=== PATIENT | female | born 1970 | race Caucasian/White ===

== ENCOUNTER 2022-07-07 00:36 | Day surgery (SDC) | payer OTHER, SELFPAY ==
[2022-06-29 11:43] VITALS: BMI 29.2
[2022-07-07 07:31] VITALS: BP 139/88; PULSE 73; RESP 20; TEMP 36.3; O2SAT 100; BMI 27.8
[2022-07-07] MEDS: LACTATED RINGERS 1,000 ML 150 ML IV CONT (07:52)
--- NOTE | 2022-07-07 08:41 | PM.HPGS ---
History of Present Illness History of Present Illness Consent: Risks, benefits, and alternatives have been discussed and questions answered. Patient agrees to proceed with procedure. Chief complaint: anemia, biopsy to determine cause Narrative: Radha Salamanca is a 51 year old female with chronic constipation on laxatives and gerd- not longer using omeprazole. Never had scopes. Also found to have anemia, no overt gib Review of Systems Constitutional: Constitutional: Denies headache(s) and Denies weakness Eyes: Eyes: Denies blurry vision ENT: Reports Normal hearing present, Denies headache(s) and Denies neck pain Cardiovascular: Cardiovascular: Denies chest pain and Denies dyspnea Respiratory: Respiratory: Denies dyspnea Gastrointestinal: Gastrointestinal: Reports no additional gastrointestinal complaints Genitourinary: Genitourinary: Denies dysuria Musculoskeletal: Musculoskeletal: Denies neck pain Integumentary/Breasts: Skin/Breast: Denies dry skin Neurologic: Reports Normal hearing present, Denies headache(s) and Denies weakness Psychiatric: Psychiatric: Denies anxiety Endocrine: Endocrine: Denies change in body appearance Hematologic/Lymphatic: Hematologic/Lymphatic: Denies easy bleeding Allergic/Immunologic: Allergic/Immunologic: Denies urticaria PMF Past Medical History Medical History (Updated 07/07/22 @ 08:42 by Aram Aranda MD) Anemia Constipation GERD (gastroesophageal reflux disease) Social History Social History Smoking status: Former smoker Substance use: former Substance use type: marijuana and amphetamines Meds Home Medications and Allergies Home Medications Medication Instructions Recorded Confirmed Type bisacodyl 5 mg tablet 5 mg PO DAILY PRN Constipation 06/29/22 06/29/22 History ferrous gluconate 324 mg (36 mg 324 mg PO DAILY 06/29/22 06/29/22 History iron) tablet folic acid 1 mg tablet 1 mg PO DAILY 06/29/22 06/29/22 History lactulose 10 gram/15 mL oral 15 ml PO BID 06/29/22 06/29/22 History solution naproxen 250 mg tablet 250 mg PO BID PRN Pain 06/29/22 06/29/22 History Allergies Allergy/AdvReac Type Severity Reaction Status Date / Time No Known Allergies Allergy Verified 07/07/22 07:28 Vital Signs Vital Signs - 24 hr 07/07/22 07:31 Temperature 97.4 F L Pulse Rate 73 Respiratory Rate 20 Blood Pressure 139/88 Pulse Oximetry 100 Oxygen Delivery Room Air Exam Const: General: comfortable and no acute distress HENMT: Face/Nose/Sinus: Normal nares present Eyes: General: appearance normal, both eyes and all related structures Neck: Neck: no JVD Resp: Auscultation: clear to auscultation bilaterally Cardio: Rate: regular rate Rhythm: regular rhythm GI: Inspection: non-distended GI Palp: Yes Soft to palpation Skin: General skin exam: normal color Neuro: General: gait normal Speech: normal speech Extrem: General: normal to inspection Psych: Mental Status: mental status grossly normal Assessment and Plan Assessment and plan (1) Constipation: Code(s): K59.00 - Constipation, unspecified Status: Acute Assessment and Plan: colonoscopy (2) GERD (gastroesophageal reflux disease): Code(s): K21.9 - Gastro-esophageal reflux disease without esophagitis Status: Acute Assessment and Plan: egd with bx (3) Anemia: Code(s): D64.9 - Anemia, unspecified Status: Acute
--- NOTE | 2022-07-07 08:48 | P.PNAN_ITS ---
Anes - Initial Pre Proc Eval Procedure: Operation Date: 07/07/22 09:00 Proposed Procedures p Esophagogastroduodenoscopy & Colonoscopy - Aram Aranda MD Date/Time: 07/07/22 08:48 Surgeon: Aram Aranda MD Pre Op Diagnosis: anemia, biopsy to determine cause Patient Data Age: 51 Gender: F Height: 1.63 m Weight: 73.7 kg Last Vital Signs Temp 97.4 F L 07/07/22 07:31 Pulse 73 07/07/22 07:31 Resp 20 07/07/22 07:31 BP 139/88 07/07/22 07:31 Pulse Ox 100 07/07/22 07:31 O2 Del Method Room Air 07/07/22 07:31 Allergies Allergy/AdvReac Type Severity Reaction Status Date / Time No Known Allergies Allergy Verified 07/07/22 07:28 Home Medications Medication Instructions Recorded Confirmed Type bisacodyl 5 mg tablet 5 mg PO DAILY PRN Constipation 06/29/22 06/29/22 History ferrous gluconate 324 mg (36 mg 324 mg PO DAILY 06/29/22 06/29/22 History iron) tablet folic acid 1 mg tablet 1 mg PO DAILY 06/29/22 06/29/22 History lactulose 10 gram/15 mL oral 15 ml PO BID 06/29/22 06/29/22 History solution naproxen 250 mg tablet 250 mg PO BID PRN Pain 06/29/22 06/29/22 History Patient hx anesthesia problems: none Family hx anesthesia problems: none Results Review: All pre-operative results and documents have been reviewed as part of the pre- operative evaluation. [facility], [facility] Past Medical History Medical History (Updated 07/07/22 @ 08:42 by Aram Aranda MD) Anemia Constipation GERD (gastroesophageal reflux disease) Social History Social History Smoking status: Former smoker Substance use: former Substance use type: marijuana and amphetamines Anes - Eval Final PreProcedure Day of Procedure 07/07/22 08:48 Patient weight: normal Heart: regular rate and rhythm Lungs: clear to auscultation Airway: Mallampati scale class II Neurological: alert and oriented Last oral intake: >/= 8 hours ASA classification: II Emergent: no Anesthetic plan: proceed Anesthesia type and monitoring: general GIVS and standard monitoring Results Review: All pre-operative results and documents have been reviewed as part of the pre- operative evaluation. Informed Consent: The patient's anesthetic plan and its attendant risks and benefits were discussed with the patient/family/POA. Questions were solicited and answers provided to the satisfaction of the patient/family/POA.
--- NOTE | 2022-07-07 09:05 | SUR.OPER ---
EGD START 846, END 850 COLONOSCOPY START 854, END 904
[2022-07-07 09:09] VITALS: BP 108/67; PULSE 80; RESP 21; O2SAT 99
[2022-07-07 09:19] VITALS: BP 102/69; PULSE 83; RESP 26; O2SAT 98
[2022-07-07 09:29] VITALS: BP 106/74; PULSE 74; RESP 14; O2SAT 100
== END 2022-07-07 09:41 | disposition home or self-care (01) ==
PROVIDERS: Visit Provider Internal Medicine Gastroenterology
PROC: 0DJ08ZZ Inspection of Upper Intestinal Tract, Via Natural or Artificial Opening Endoscopic (ICD-10-PCS; CPT 43235; principal; 2022-07-07 09:00)
DX: Z12.11 Encounter for screening for malignant neoplasm of colon (principal); D64.9 Anemia, unspecified; K59.00 Constipation, unspecified; K63.5 Polyp of colon; K64.8 Other hemorrhoids; K29.70 Gastritis, unspecified, without bleeding; K21.9 Gastro-esophageal reflux disease without esophagitis; Z87.891 Personal history of nicotine dependence
CPT/HCPCS: 45385; 43239; 88305; J2704; J7120